=== PATIENT | female | born 1975 | race Caucasian/White ===

== ENCOUNTER 2019-09-20 08:55 | Outpatient (CLI) | payer BC, SELFPAY ==
--- NOTE | 2019-09-20 | US_ITS ---
WS: [id number] ULTRASOUND ABDOMEN CLINICAL INFORMATION: ABDOMINAL PAIN ACUTE COMPARISON: None. FINDINGS: Liver Size: Normal. Craniocaudal length: 11.8 cm. Echogenicity: Normal. Surface nodularity: None. Mass (size and location): None. Bile ducts Intrahepatic ducts: Normal. Common bile duct diameter: 1.8 mm. Gallbladder Normal. Gallstones: None. Gallbladder sludge: None. Gallbladder wall thickening: None. Pericholecystic fluid: None. Sonographic Aquino sign: Absent. Pancreas Normal as visualized. Spleen Splenomegaly: None. Craniocaudal length: 9.6 cm. Right kidney: Normal. Hydronephrosis: None. Size: 9.4 cm x 4.1 cm x 4.7 cm Left kidney: Normal. Hydronephrosis: None. Size: 9.9 cm x 4.3 cm x 3.9 cm. Abdominal aorta and IVC Visualized portions are normal. Ascites: None. US/US abdomen complete* [id number] IMPRESSION: Normal abdominal ultrasound
== END 2019-09-20 08:56 | disposition home or self-care (01) ==
LOC: RADOUTREAD 11:58
PROVIDERS: Family Provider Electrodiagnostic Medicine; PCP Electrodiagnostic Medicine; Visit Provider Nurse Practitioner Family
DX: Z76.89 Persons encountering health services in other specified circumstances (principal)

== ENCOUNTER 2019-10-10 11:12 | Outpatient (CLI) | payer BC, SELFPAY ==
--- NOTE | 2019-10-10 11:13 | MM_ITS ---
WS: [id number] BILATERAL SCREENING DIGITAL MAMMOGRAM WITH CAD HISTORY: SCREENING COMPARISON: 08/18/2018, 07/01/2017 and 03/11/2016 Bilateral CC and MLO views submitted. Computer aided detection analyzed. Breast composition: The breasts are heterogeneously dense, which may obscure small masses. No suspici ous masses, microcalcifications or architectural distortion. Asymmetries and calcifications within ea ch breast are stable over multiple prior years. MM/[place] [id number] IMPRESSION: BI-RADS: 2-Benign FOLLOW UP: 1 Year Follow-up
== END 2019-10-10 11:13 | disposition home or self-care (01) ==
LOC: RADSHAW 11:12
PROVIDERS: Family Provider Electrodiagnostic Medicine; PCP Electrodiagnostic Medicine; Visit Provider Obstetrics & Gynecology
DX: Z12.31 Encounter for screening mammogram for malignant neoplasm of breast (principal)
CPT/HCPCS: 77067

== ENCOUNTER 2020-08-13 12:54 | Outpatient (CLI) | payer BC, SELFPAY ==
--- NOTE | 2020-08-13 13:07 | XRR_ITS ---
PROCEDURE INFORMATION: Exam: XR Right Wrist Exam date and time: 08/13/2020 1:12 PM Age: 44 years old Clinical indication: Closed fracture of distal end of right radius TECHNIQUE: Imaging protocol: XR Right wrist. Views: 3 or more views. COMPARISON: CR XR wrist RT min 3V* [id number] 07/28/2020 11:59 AM FINDINGS: Bones/joints: Fracture of the distal radius with transverse and longitudinal components is redemonstrated. No change in alignment. Soft tissues: Soft tissue detail obscured by casting material. XR/XR wrist RT min 3V* [id number] IMPRESSION: No change in alignment at the distal radial fracture.
== END 2020-08-13 12:55 | disposition home or self-care (01) ==
LOC: RAD 13:02
PROVIDERS: PCP Electrodiagnostic Medicine; Visit Provider Orthopaedic Surgery Hand Surgery
DX: S52.501A Unspecified fracture of the lower end of right radius, initial encounter for closed fracture (principal); X58.XXXA Exposure to other specified factors, initial encounter
CPT/HCPCS: 73110

== ENCOUNTER → 2020-10-15 13:45 | Outpatient (BNVA) | payer BC, SELFPAY | PROVIDERS: PCP Electrodiagnostic Medicine; Visit Provider Obstetrics & Gynecology | DX: Z12.4 Encounter for screening for malignant neoplasm of cervix (principal) | CPT/HCPCS: 88175 ==

== ENCOUNTER 2020-11-09 12:40 | Outpatient (CLI) | payer BC, SELFPAY ==
--- NOTE | 2020-11-09 12:51 | MM_ITS ---
WS: [id number] BILATERAL SCREENING DIGITAL MAMMOGRAM WITH CAD HISTORY: SCREEN COMPARISON: 10/10/2019, 08/18/2018, 07/01/2017 and 03/06/2015 Bilateral CC and MLO views submitted. Computer aided detection analyzed. Breast composition: The breasts are heterogeneously dense, which may obscure small masses. Long-term stability of an area of distortion in the posterior LEFT breast. There are adjacent calcifications. T his architectural distortion was noted in 2014. MM/[place] [id number] IMPRESSION: BI-RADS: 2-Benign FOLLOW UP: 1 Year Follow-up
== END 2020-11-09 12:41 | disposition home or self-care (01) ==
LOC: RADSHAW 12:42
PROVIDERS: PCP Electrodiagnostic Medicine; Visit Provider Obstetrics & Gynecology
DX: Z12.31 Encounter for screening mammogram for malignant neoplasm of breast (principal)
CPT/HCPCS: 77067

== ENCOUNTER → 2021-10-17 13:43 | Outpatient (BNVA) | payer BC, SELFPAY | PROVIDERS: PCP Electrodiagnostic Medicine; Visit Provider Obstetrics & Gynecology | DX: N63.21 Unspecified lump in the left breast, upper outer quadrant (principal); R53.83 Other fatigue | CPT/HCPCS: 84443 ==

== ENCOUNTER 2021-11-05 14:09 | Outpatient (CLI) | payer BC, SELFPAY ==
--- NOTE | 2021-11-05 14:10 | US_ITS ---
WS: [id number] ADDITIONAL VIEWS LEFT MAMMOGRAM LEFT BREAST ULTRASOUND HISTORY: LEFT BREAST NODULE. COMPARISON: 11/09/2020, 10/10/2019, 08/18/2018 LEFT MAMMOGRAM: Spot compression views and true ML. Palpable marker is placed along the upper outer quadrant of the LEFT breast. There is dense fibroglan dular tissue. No discrete mass identified. Very similar appearance to prior examinations. Similar fin dings were noted on the prior study from 2016. LEFT BREAST ULTRASOUND 2-D and color Doppler imaging submitted. Ultrasound directed to the 2:00 area as indicated by the patient. There is dense fibroglandular tissu e. No shadowing identified. No discrete mass. US/US breast LT limited* [id number] IMPRESSION: BI-RADS: 2-Benign FOLLOW UP: 1 Year Follow-up LACK OF RADIOGRAPHIC EVIDENCE OF MALIGNANCY SHOULD NOT DELAY BIOPSY IF A CLINIC ALLY SUSPICIOUS MASS IS PRESENT. There is very dense fibroglandular tissue in t he location of the palpable nodule. No mass identified. Clinically if this is o f concern surgical removal should be considered.
--- NOTE | 2021-11-05 14:26 | MM_ITS ---
WS: [id number] ADDITIONAL VIEWS LEFT MAMMOGRAM LEFT BREAST ULTRASOUND HISTORY: LEFT BREAST NODULE. COMPARISON: 11/09/2020, 10/10/2019, 08/18/2018 LEFT MAMMOGRAM: Spot compression views and true ML. Palpable marker is placed along the upper outer quadrant of the LEFT breast. There is dense fibroglan dular tissue. No discrete mass identified. Very similar appearance to prior examinations. Similar fin dings were noted on the prior study from 2016. LEFT BREAST ULTRASOUND 2-D and color Doppler imaging submitted. Ultrasound directed to the 2:00 area as indicated by the patient. There is dense fibroglandular tissu e. No shadowing identified. No discrete mass. MM/[place] [id number] IMPRESSION: BI-RADS: 2-Benign FOLLOW UP: 1 Year Follow-up LACK OF RADIOGRAPHIC EVIDENCE OF MALIGNANCY SHOULD NOT DELAY BIOPSY IF A CLINIC ALLY SUSPICIOUS MASS IS PRESENT. There is very dense fibroglandular tissue in t he location of the palpable nodule. No mass identified. Clinically if this is o f concern surgical removal should be considered.
== END 2021-11-05 14:10 | disposition home or self-care (01) ==
PROVIDERS: PCP Electrodiagnostic Medicine; Visit Provider Obstetrics & Gynecology
DX: N63.21 Unspecified lump in the left breast, upper outer quadrant (principal)
CPT/HCPCS: 76642; 77062

== ENCOUNTER 2022-11-20 08:03 | Outpatient (CLI) | payer BC, SELFPAY ==
--- NOTE | 2022-11-20 08:13 | MM_ITS ---
WS: [id number] BILATERAL SCREENING DIGITAL TOMOSYNTHESIS MAMMOGRAM WITH CAD HISTORY: SCREEN COMPARISON: 11/05/2021, 11/09/2020 Bilateral CC and MLO views with tomosynthesis and synthetic mammography submitted. Computer aided det ection analyzed. Breast composition: The breasts are heterogeneously dense, which may obscure small masses. No suspici ous masses, microcalcifications or architectural distortion. MM/[place] [id number] IMPRESSION: BI-RADS: 1-Negative FOLLOW UP: 1 Year Follow-up
== END 2022-11-20 08:04 | disposition home or self-care (01) ==
LOC: RAD 08:06
PROVIDERS: PCP Electrodiagnostic Medicine; Visit Provider Obstetrics & Gynecology
DX: Z12.31 Encounter for screening mammogram for malignant neoplasm of breast (principal)
CPT/HCPCS: 77063; 77067

== ENCOUNTER → 2023-11-11 15:45 | Outpatient (BNVA) | payer BC, SELFPAY | PROVIDERS: PCP Electrodiagnostic Medicine; Visit Provider Obstetrics & Gynecology | DX: Z01.419 Encounter for gynecological examination (general) (routine) without abnormal findings (principal) | CPT/HCPCS: 87624 ==

== ENCOUNTER → 2024-01-19 14:49 | Outpatient (CLI) | payer BC, SELFPAY ==
--- NOTE | 2024-01-19 15:00 | MM_ITS ---
WS: [id number] BILATERAL 3D TOMOSYNTHESIS DIGITAL SCREENING MAMMOGRAPHY WITH CAD CLINICAL INFORMATION: Z12.39 - Encounter for other screening for malignant neop... HISTORY: Screening mammogram. No current complaints. COMPARISON: 2022 TECHNIQUE: Bilateral CC and MLO views. FINDINGS: The breasts are composed of heterogeneous fibroglandular density tissue, which can limit the detectio n of small underlying mass lesions. No suspicious mass, asymmetry, calcifications, or architectural d istortion. No evidence of malignancy. Lucent centered calcification LEFT breast. Vascular calcificati ons. MM/[place] [id number] IMPRESSION: BI-RADS: 2-Benign FOLLOW UP: 1 Year Follow-up Recommend return to annual screening mammography.
== END | disposition home or self-care (01) ==
LOC: RAD 14:49
PROVIDERS: PCP Electrodiagnostic Medicine; Visit Provider Obstetrics & Gynecology
DX: Z12.31 Encounter for screening mammogram for malignant neoplasm of breast (principal)
CPT/HCPCS: 77063; 77067

== ENCOUNTER → 2024-12-05 16:46 | Outpatient (BNVA) | payer BC, SELFPAY | PROVIDERS: PCP Electrodiagnostic Medicine; Visit Provider Obstetrics & Gynecology | DX: Z01.419 Encounter for gynecological examination (general) (routine) without abnormal findings (principal) | CPT/HCPCS: 80053; 82306; 84443; 85025 ==

== ENCOUNTER 2025-01-25 13:06 | Outpatient (CLI) | payer BC, SELFPAY ==
--- NOTE | 2025-01-25 13:17 | MM_ITS ---
WS: [id number] BILATERAL 3D TOMOSYNTHESIS DIGITAL SCREENING MAMMOGRAPHY WITH CAD CLINICAL INFORMATION: SCREENING HISTORY: Screening mammogram. No current complaints. COMPARISON: 2023 TECHNIQUE: Bilateral CC and MLO views. FINDINGS: The breasts are composed of heterogeneous fibroglandular density tissue, which can limit the detection of small underlying mass lesions. No suspicious mass, asymmetry, calcifications, or architectural distortion. No evidence of malignancy. Lucent centered calcification LEFT breast MM/MM scr tomosynthesis [id number] IMPRESSION: DENSITY: The breasts are heterogeneously dense, which may obscure small masses. BI-RADS: 2 - Benign FOLLOW UP: 1 Year Follow-up Recommend return to annual screening mammography.
== END 2025-01-25 13:07 | disposition home or self-care (01) ==
LOC: RAD 13:07
PROVIDERS: PCP Electrodiagnostic Medicine; Visit Provider Obstetrics & Gynecology
DX: Z12.31 Encounter for screening mammogram for malignant neoplasm of breast (principal); R92.333 Mammographic heterogeneous density, bilateral breasts; R92.1 Mammographic calcification found on diagnostic imaging of breast
CPT/HCPCS: 77063; 77067